=== PATIENT | female | born 1940 | race Caucasian/White ===

== ENCOUNTER → 2020-09-06 | Outpatient (CLI) | payer MEDICARE ==
[~2020-09-06] MED LIST: AMLODIPINE BESYL5 MG PO; BENAZEPRIL HCL40 MG PO; BIOTIN; CENTRUM SILVER PO; CRESTOR5 MG PO; ELIQUIS 2.5 MG2.5 MG PO; HYDRALAZINE HCL50 MG PO; HYDROCHLOROTHIA25 MG PO; HYDROCODON-ACE1 EAC2 PO; IBUPROFEN800 MG PO; KEFLEX CAP 500500 MG PO; LEVOTHYROXINE50 MCG PO; MELOXICAM15 MG PO; METFORMIN HCL500 MG PO; NORCO 5-325 TA1 EACH PO; PEPCID40 MG PO; PREMARIN0.625 MG PO; PRESERVISION A1 EAC2 PO; PROPRANOLOL HCL60 MG PO; RANITIDINE HCL300 MG PO; VITAMIN C 500500 MG PO
[2020-09-06 12:51] LABS: HEMOGLOBIN 13.6 gm/dl (12.3-15.3); RED BLOOD COUNT 4.4 M/UL (4.00-5.10); WHITE BLOOD COUNT 7.4 K/UL (4.5-11.0)
[2020-09-06 13:14] LABS: BUN/CREATININE RATIO 37 (0-10)
== END ==
LOC: OPSV2 09-05 10:00
PROVIDERS: Orthopaedic Surgery
DX: Z01.818 Encounter for other preprocedural examination (principal); G56.02 Carpal tunnel syndrome, left upper limb
CPT/HCPCS: 36415; 71046; 80048; 85025; 93005

== ENCOUNTER → 2020-09-13 | Day surgery (SDC) | payer MEDICARE ==
[~2020-09-13] VITALS: Ht 162.6 cm; Wt 77.1 kg
== END | disposition home or self-care (01) ==
LOC: OR 05:49
DX: G56.03 Carpal tunnel syndrome, bilateral upper limbs (principal); I10 Essential (primary) hypertension; E11.9 Type 2 diabetes mellitus without complications; E07.9 Disorder of thyroid, unspecified; E78.5 Hyperlipidemia, unspecified; K21.9 Gastro-esophageal reflux disease without esophagitis; M19.90 Unspecified osteoarthritis, unspecified site; Z79.84 Long term (current) use of oral hypoglycemic drugs; Z79.899 Other long term (current) drug therapy
CPT/HCPCS: J0690; J1100; J2001; J2405; J2704; J3010; J7030; J7120

== ENCOUNTER → 2021-01-01 | Outpatient (CLI) | payer MEDICARE ==
[2021-01-01 09:00] LABS: RED BLOOD COUNT 4.46 M/UL (4.00-5.10); WHITE BLOOD COUNT 6.1 K/UL (4.5-11.0)
[2021-01-01 09:21] LABS: BUN/CREATININE RATIO 37 (0-10)
== END ==
LOC: OPSV2 08:00
PROVIDERS: Orthopaedic Surgery
DX: Z01.818 Encounter for other preprocedural examination (principal); M17.11 Unilateral primary osteoarthritis, right knee
CPT/HCPCS: 36415; 71046; 80048; 81001; 83036; 85025; 87081; 93005

== ENCOUNTER → 2021-01-09 | Outpatient (CLI) | payer MEDICARE ==
[2021-01-09 16:33] LABS: BUN/CREATININE RATIO 35 (0-10)
== END ==
LOC: LAB 13:14
PROVIDERS: Orthopaedic Surgery
DX: Z01.812 Encounter for preprocedural laboratory examination (principal)
CPT/HCPCS: 36415; 80048; 86850; 86900; 86901

== ENCOUNTER 2021-01-10 06:28 | Day surgery (SDC) | payer MEDICARE ==
[~2021-01-10] VITALS: Ht 162.6 cm; Wt 74.8 kg
[~2021-01-10 06:28] MED LIST changes: -ELIQUIS 2.5 MG2.5 MG PO; -HYDROCODON-ACE1 EAC2 PO
[2021-01-10] MEDS ORDERED: HYDROCODON-ACE1 EAC2 PO (12:02)
[2021-01-11 04:27] LABS: HEMOGLOBIN 10.1 gm/dl (12.3-15.3); RED BLOOD COUNT 3.28 M/UL (4.00-5.10); WHITE BLOOD COUNT 10.7 K/UL (4.5-11.0)
[2021-01-11 04:44] LABS: BUN/CREATININE RATIO 26 (0-10)
[2021-01-11] MEDS ORDERED: ELIQUIS 2.5 MG2.5 MG PO (11:10)
--- NOTE | 2021-01-11 11:32 | NUR ---
INSTRUCTED PATIENT MEDS AT PHARMACY. KEEP FOLLOW UP APPOINTMENTS. VERBALIZED UNDERSTANDING RAYNE MONTOYA R.N.
== END 2021-01-11 15:31 | disposition home or self-care (01) ==
LOC: OR 06:28 → EDSTATUS 09:15 → M/S 14:11 → OR 01-11 15:31
PROVIDERS: Orthopaedic Surgery
DX: G89.29 Other chronic pain (principal); M17.11 Unilateral primary osteoarthritis, right knee; M21.061 Valgus deformity, not elsewhere classified, right knee; I10 Essential (primary) hypertension; E11.9 Type 2 diabetes mellitus without complications; E78.5 Hyperlipidemia, unspecified; R60.9 Edema, unspecified; E03.9 Hypothyroidism, unspecified; D64.9 Anemia, unspecified; K21.9 Gastro-esophageal reflux disease without esophagitis; F40.240 Claustrophobia; Z79.899 Other long term (current) drug therapy; Z79.890 Hormone replacement therapy; Z79.84 Long term (current) use of oral hypoglycemic drugs; Z90.710 Acquired absence of both cervix and uterus
CPT/HCPCS: 36415; 73560; 80048; 82962; 85025; 97110; 97116-GP-CQ; 97162; 97165; 97530-GP-CQ; 97535; C1776; J0171; J0690; J1100; J1170; J1885; J2250; J2405; J2704; J2795; J3010; J3370; J7030; J7120

== ENCOUNTER 2021-02-01 13:20 | Emergency (ER) | payer MEDICARE ==
[~2021-02-01 13:20] MED LIST changes: +ELIQUIS 2.5 MG2.5 MG PO; +HYDROCODON-ACE1 EAC2 PO
== END 2021-02-01 15:25 | disposition home or self-care (01) ==
LOC: ER1 13:20
DX: M25.561 Pain in right knee (principal); I10 Essential (primary) hypertension; Z79.899 Other long term (current) drug therapy
CPT/HCPCS: 73552; 73564; 99283